=== PATIENT | female | born 1995 | race Caucasian/White ===

== ENCOUNTER 2017-06-26 20:05 | Emergency (ER) | payer BC ==
--- NOTE | 2017-06-26 22:59 | ED ---
Stephen Carvalho Stephanie, scribed for Suzanne Rm MD on 06/26/17 at 2205 . Lower Extremity - HPI Summary HPI Summary: The pt is a 21 y/o F presenting to the ED with c/o bilateral LE and UE pressure that began on 06/19/17. The pt states she started taking oral contraceptives of . She states that almost immediately after starting the control, she got pain in calves and knees and sharp pains in the thighs bilaterally. The soreness became more of a throbbing sensation. The pt states that now she has pressure in her calves and UE bilaterally. The pt states she woke up last night due to pressure in calves. She denies CP or SOB. She stopped taking the oral contraceptives after 2 doses. LNMP 06/24/17. . Pt is a nonsmoker but is exposed to secondary smoke from her boyfriend. Pt has hx of blood clots at an advanced age in grandparents of both sides of her family. - History of Current Complaint Chief Complaint: EDGeneral Stated Complaint: PAIN IN CALVES Time Seen by Provider: 06/26/17 21:52 Hx Obtained From: Patient Onset of Pain: Days - 7 Onset/Duration: Days - 7 Severity Initially: Mild Severity Currently: Mild Pain Intensity: 2 Pain Scale Used: 0-10 Numeric Timing: Constant Location: Is Discrete @ - bilateral lower extremities Character Of Pain: Aching, Throbbing Associated Signs And Symptoms: Positive: Negative Aggravating Factor(s): Other - oral contraceptives Alleviating Factor(s): Nothing Able to Bear Weight: Yes - Allergies/Home Medications Allergies/Adverse Reactions: Allergies Allergy/AdvReac Type Severity Reaction Status Date / Time egg Allergy Vomiting Verified 06/26/17 20:09 Penicillins Allergy Rash Verified 06/26/17 20:09 PMH/Surg Hx/FS Hx/Imm Hx Previously Healthy: Yes - The pt denies all past medical hx. Sensory History: Denies: Hx Legally Blind EENT History: Denies: Hx Deafness - Surgical History Surgery Procedure, Year, and Place: endoscopy. colonoscopy Infectious Disease History: No Infectious Disease History: Denies: Traveled Outside the [place] in Last 30 Days - Family History Known Family History: Positive: Other - pt states hx blood clots in grandparents both sides of her family - Social History Alcohol Use: None Substance Use Type: Reports: None Smoking Status (MU): Never Smoked Tobacco Review of Systems Negative: Fever Cardiovascular: Negative Respiratory: Negative Positive: Other - LE and UE pressure bilaterally Neurological: Negative Psychological: Normal All Other Systems Reviewed And Are Negative: Yes Physical Exam - Summary Physical Exam Summary: Appearance: 21 F in mild pain distress, Well-nourished, examined in hallway to initiate workup. Skin: Warm, color reflects adequate perfusion Head: Normal Head/Face inspection Eyes: Conjunctiva clear ENT: Normal inspection Neck: Supple, no nodes, no JVD. Respiratory: Lungs clear, Normal breath sounds, no respiratory distress Cardio: RRR, No murmur, pulses normal, brisk capillary refill Abdomen: soft, nontender Bowel sounds: present Musculoskeletal: Strength Intact/ ROM intact. Mild bilateral lower extremity tenderness. No obvious swelling. No edema. Neuro: Alert, muscle tone normal, facial symmetry, speech normal, sensory/motor intact Psychological: Normal Triage Information Reviewed: Yes Vital Signs On Initial Exam: Initial Vitals Temp Pulse Resp BP Pulse Ox 98.6 F 74 16 133/84 100 06/26/17 20:09 06/26/17 20:09 06/26/17 20:09 06/26/17 20:09 06/26/17 20:09 Vital Signs Reviewed: Yes Diagnostics - Vital Signs Vital Signs Temp Pulse Resp BP Pulse Ox 06/26/17 20:09 98.6 F 74 16 133/84 100 - Laboratory Lab Statement: Any lab studies that have been ordered have been reviewed, and results considered in the medical decision making process. Lower Extremity Course/Dx - Course Course Of Treatment: This pt is a sign out to Dr. Summers at shift change 06/26/17 , 2200, with bilat LE ultrasounds pending. - Diagnoses Provider Diagnoses: Bilateral leg pain Discharge - Discharge Plan Condition: Stable Disposition: OTHER Discharge Disposition Comment: This pt is a sign out to Dr. Summers at shift change. Referrals: [facility] - Oni BANKS [Primary Care Provider] - The documentation as recorded by the Stephen osei Stephanie accurately reflects the service I personally performed and the decisions made by , Suzanne Rm MD.
[2017-06-27 00:09] VITALS: BP 103/65
--- NOTE | 2017-06-27 00:09 | PN ---
Dalia Carvalho Edward, scribed for Elier Summers MD on 06/26/17 at 2218 . Progress Note - Progress Note Date of Service: 06/26/17 Note: Pt signed out by Dr. Rm at shift change, pending VL of bilateral LE. VENOUS DOPPLER of LOWER EXTREMITIES SHOWS No DVT, by radiologist reviewed and agreed by the ED physician. Pt will be d/c home with f/u with PCP. Dx: leg pain. The documentation as recorded by the donnaibDalia moore Edward accurately reflects the service I personally performed and the decisions made by Kristopher saunders Abdul, MD.
--- NOTE | 2017-06-27 07:35 | RAD ---
HISTORY: Bilateral leg pain TECHNIQUE: Multiple transverse and longitudinal ultrasound images were obtained of the veins of the bilateral lower extremities using grayscale, color Doppler, and spectral Doppler imaging with and without compression and with augmentation. FINDINGS: VEINS: The common femoral vein, deep femoral vein, femoral vein and popliteal vein are compressible throughout their course, with normal flow on color Doppler imaging and normal response to augmentation on spectral Doppler imaging. SOFT TISSUES: Grossly normal. No large popliteal fossa cyst was identified. IMPRESSION: No sonographic evidence of deep vein thrombosis.
== END 2017-06-27 00:08 | disposition home or self-care (01) ==
LOC: ED 20:05
DX: M79.605 Pain in left leg (principal); M79.604 Pain in right leg
CPT/HCPCS: 93970; 99281